=== PATIENT | female | born 1980 | race African-American/Black ===

== ENCOUNTER 2018-11-06 14:55 | Emergency (ER) | payer OTHER ==
[2018-11-06 15:22] VITALS: TEMP 98.5; BMI 43.5
[2018-11-06 15:58] LABS: BASO % 0.7 % (0-2.0); HEMATOCRIT 39.4 % (32.4-45.2); LYMPH % 42.5 % (8-40); MCH 29.5 pg (25.7-33.7); MCHC 32.9 g/dl (32.0-36.0); MEAN CELL VOLUME 89.5 fl (80-96); MEAN PLT VOLUME 7.7 fl (7.5-11.1); MONO % 8.2 % (3.8-10.2); NEUT % 45.6 % (42.8-82.8); PLATELET COUNT 304 K/MM3 (134-434); RDW 14.9 % (11.6-15.6); WHITE BLOOD COUNT 8.5 K/mm3 (4.0-10.0)
--- NOTE | 2018-11-06 16:02 | PDOC ---
History of Present Illness - General Chief Complaint: Shortness of Breath Stated Complaint: SENT BY PCP Time Seen by Provider: 11/06/18 15:27 History Source: Patient Exam Limitations: No Limitations - History of Present Illness Initial Comments: 11/06/18 15:55 Pt is a 38yo F with no significant PMH presenting to ED with complaints of back pain with inspiration that started last night. Pt states she was sitting on the couch and when she had sudden onset of pain in the upper back with inspiration and feelings of GERD. She took Zantac and the heart burn went away but the back pain persisted. Pt states she has not been able to take full breaths due to the pain. She went to urgent care and was told her d-dimer was "abnormal". She denies chest pain, cough, hemoptysis, palpitations, abdominal pain, n/v/d, trauma, recent travel, recent surgery, leg swelling, calf pain, syncope, lightheadedness, fevers, chills. Denies use of OCPs, smoking. PMD: [place] PMH: none PSH: none Allergies: nkda Social: denies 11/06/18 16:03 Past History - Past Medical History Allergies/Adverse Reactions: Allergies Allergy/AdvReac Type Severity Reaction Status Date / Time No Known Drug Allergies Allergy Verified 10/30/15 20:09 Home Medications: Ambulatory Orders Sumatriptan Succinate [Imitrex] 25 mg PO DAILY 11/06/18 Asthma: No Cancer: No Cardiac Disorders: No Diabetes: No HTN: No Seizures: No Thyroid Disease: No - Reproductive History (#): 8 Para: 7 Cervical CA: No Dysfunctional Uterine Bleeding: No Ectopic : No Endometrial CA: No Polycystic Ovaries: No Therapeutic (s) & number: No Tubal Ligation: No Spontaneous : 0 - Immunization History Immunization Up to Date: Yes - Suicide/Smoking/Psychosocial Hx Smoking History: Current every day smoker Have you smoked in the past 12 months: No Number of Cigarettes Smoked Daily: 12 If you are a former smoker, when did you quit?: 03/29/14 Information on smoking cessation initiated: No 'Breaking Loose' booklet given: 10/28/15 Hx Alcohol Use: No Drug/Substance Use Hx: No Substance Use Type: None Hx Substance Use Treatment: No Review of Systems - Review of Systems Constitutional: No: Symptoms Reported HEENTM: No: Symptoms Reported Respiratory: Yes: See HPI, Other (pleuritic back pain) Cardiac (ROS): No: Symptoms Reported ABD/GI: No: Symptoms Reported : No: Symptoms Reported Musculoskeletal: Yes: See HPI, Back Pain Integumentary: No: Symptoms Reported Neurological: No: Symptoms reported *Physical Exam - Vital Signs Last Vital Signs Temp Pulse Resp BP Pulse Ox 98.5 F 81 20 123/79 100 11/06/18 15:18 11/06/18 15:18 11/06/18 15:18 11/06/18 15:18 11/06/18 15:18 - Physical Exam General Appearance: Yes: Appropriately Dressed, Obese. No: Apparent Distress HEENT: positive: EOMI, BRITTANY, Normal ENT Inspection Neck: positive: Trachea midline, Supple. negative: Lymphadenopathy (R), Lymphadenopathy (L) Respiratory/Chest: positive: Lungs Clear, Normal Breath Sounds. negative: Crackles, Wheezing Cardiovascular: positive: Regular Rhythm, Regular Rate, S1, S2. negative: Edema , JVD, Murmur Vascular Pulses: Carotid (R): 2+, Carotid (L): 2+, Dorsalis-Pedis (R): 2+, Doralis-Pedis (L): 2+ Gastrointestinal/Abdominal: positive: Normal Bowel Sounds, Soft. negative: Tender Musculoskeletal: negative: CVA Tenderness Extremity: positive: Normal Capillary Refill. negative: Swelling, Calf Tenderness Integumentary: positive: Normal Color, Dry, Warm Neurologic: positive: inclusion manager II-XII NML intact, Fully Oriented, Alert, Normal Mood/ Affect, Normal Response, Motor Strength 11/21 ED Treatment Course - LABORATORY CBC & Chemistry Diagram: 11/06/18 15:50 11/06/18 15:50 Medical Decision Making - Medical Decision Making 11/06/18 16:00 Pt is a 38yo F with no significant PMH presenting to ED with complaints of back pain with inspiration that started last night. Pt states she was sitting on the couch and when she had sudden onset of pain in the upper back with inspiration and feelings of GERD. She took Zantac and the heart burn went away but the back pain persisted. Pt states she has not been able to take full breaths due to the pain. She went to urgent care and was told her d-dimer was elevated. She denies chest pain, cough, hemoptysis, palpitations, abdominal pain, n/v/d, trauma, recent travel, recent surgery, leg swelling, calf pain, syncope, lightheadedness , fevers, chills. Denies use of OCPs, smoking. vitals: PE: Ddx includes but not limited to msk, pe, dissection, acs, costrochondritis -labs, d-dimer -if not , will get imaging. labs significant for elevated D-dimer. all other labs wnl. will order CTA 11/06/18 18:48 CTA- no PE, unremarkable CT of thorax. ekg- nsr, low voltages. TWI in III. Flat in V3, V4-6. Pt does not have acute process, is hemodynamically stable, has pmd f/u. will dc home. given referral to cardiology per ekg findings. pt agrees to plan. understands return precautions. 11/06/18 19:29 *DC/Admit/Observation/Transfer Diagnosis at time of Disposition: Back pain Qualifiers: Back pain location: thoracic back pain Chronicity: acute Back pain laterality: left Qualified Code(s): M54.6 - Pain in thoracic spine - Discharge Dispostion Disposition: HOME Condition at time of disposition: Good Decision to Admit order: No - Referrals Referrals: Angie South MD [Primary Care Provider] - Isidro Olea MD [Staff Physician] - - Patient Instructions Printed Discharge Instructions: DI for Thoracic Back Pain Additional Instructions: You were seen in the emergency room today for back pain with inspiration. You do not have a PE (clot) and your lungs appear normal. I do not know the exact cause of your pain, but it could be due to the muscles. I recommend making an appointment with your primary care doctor as well as a bb shot packer. The information is provided below. You can continue to take Tylenol or ibuprofen for the pain as needed. Come back to the emergency room if pain gets worse, you have difficulty breathing, you pass out or if any new concerning symptom develops. Thank you - Post Discharge Activity
[2018-11-06 16:30] LABS: ALBUMIN 3.2 g/dl (3.4-5.0); ALK PHOS 56 U/L (45-117); ANION GAP 2 MMOL/L (8-16); BILIRUBIN,TOTAL 0.2 mg/dL (0.2-1); BLOOD UREA NITROGEN 16 mg/dL (7-18); CHLORIDE 106 mmol/L (98-107); CO2 30 mmol/L (21-32); CREATININE 0.8 mg/dL (0.55-1.3); GLUCOSE,RANDOM 83 mg/dL (74-106); MAGNESIUM 2.2 mg/dL (1.8-2.4); SGOT/AST 22 U/L (15-37); SGPT/ALT 21 U/L (13-61); SODIUM 139 mmol/L (136-145); TOT PROT 7.2 g/dl (6.4-8.2)
--- NOTE | 2018-11-06 16:35 | PDOC ---
Documentation entered by Pete Garcia SCRIBE, acting as scribe for Modesto Yao MD. Modesto Yao MD: This documentation has been prepared by the Jose valdez Nirvannie, SCRIBE, under my direction and personally reviewed by me in its entirety. I confirm that the documentation accurately reflects all work, treatment, procedures, and medical decision making performed by me. Attending Attestation - Resident Resident Name: RosmeryDeborah - ED Attending Attestation I have performed the following: I have examined & evaluated the patient, The case was reviewed & discussed with the resident, I agree w/resident's findings & plan - HPI HPI: 11/06/18 16:43 The patient is a 38 year old female, with no significant past medical history, who presents to the emergency department with, 2 days pleuritic back pain with associated GERD-like symptoms. As per patient, her symptoms onset last night while watching a movie she took her Zantac and the GERD resolved, however, the pain persisted. She endorses going to urgent care today at which time she had an elevated d-dimer, prompting her arrival to the ER for further evaluation. She denies recent fevers, chills, headache or dizziness. She denies recent nausea, vomit, diarrhea or constipation. She denies recent dysuria, frequency, urgency or hematuria. Allergies: NKDA Social history: Smoker ppd. Primary Care Physician: Dr. South - Physicial Exam PE: 11/06/18 16:43 GENERAL: Awake, alert, and fully oriented, in no acute distress HEAD: No signs of trauma EYES: PERRLA, EOMI, sclera anicteric, conjunctiva clear ENT: Auricles normal inspection, hearing grossly normal, nares patent, oropharynx clear without exudates. Moist mucosa NECK: Normal ROM, supple, no lymphadenopathy, JVD, or masses LUNGS: Breath sounds equal, clear to auscultation bilaterally. No wheezes, and no crackles HEART: Regular rate and rhythm, normal S1 and S2, no murmurs, rubs or gallops ABDOMEN: Soft, nontender, normoactive bowel sounds. No guarding, no rebound. No masses EXTREMITIES: Normal range of motion, no edema. No clubbing or cyanosis. No cords, erythema, or tenderness NEUROLOGICAL: Cranial nerves II through XII grossly intact. Normal speech, normal gait SKIN: Warm, Dry, normal turgor, no rashes or lesions noted. - Medical Decision Making 11/06/18 16:36 A portion of this note was written by my scribe, under my supervision. Vital Signs Temp Pulse Resp BP Pulse Ox 98.5 F 81 20 123/79 100 11/06/18 15:18 11/06/18 15:18 11/06/18 15:18 11/06/18 15:18 11/06/18 15:18 38 year old female c/ no pmh p/w pleuritic back pain since yesterday. Pt reports that she was watching a movie when the patient came on suddenly. The patient stated that the pain was sharp and persistent. No associated SOB. No dyspnea on exertion. Does smoke half pack of cigarettes daily, but does not take control pills. No prior cardiac history. Denies nausea, vomiting, abdominal pain. The patient went to urgent care and noted an elevated d-dimer so pt to ER. Will need to rule out PE. ACS less likely. ECG with nonspecific findings. No ECG findings of pericarditis. CTA of chest. Troponin. Reassess. 11/06/18 18:49 CBC, BMP 11/06/18 15:50 11/06/18 15:50 CMP Sodium 139 mmol/L (136-145) 11/06/18 15:50 Potassium 5.0 mmol/L (3.5-5.1) 11/06/18 15:50 Chloride 106 mmol/L (98-107) 11/06/18 15:50 Carbon Dioxide 30 mmol/L (21-32) 11/06/18 15:50 Anion Gap 2 MMOL/L (8-16) L 11/06/18 15:50 BUN 16 mg/dL (7-18) 11/06/18 15:50 Creatinine 0.8 mg/dL (0.55-1.3) 11/06/18 15:50 Creat Clearance w eGFR 80.27 (>60) 11/06/18 15:50 Random Glucose 83 mg/dL (74-106) 11/06/18 15:50 Calcium 9.0 mg/dL (8.5-10.1) 11/06/18 15:50 Magnesium 2.2 mg/dL (1.8-2.4) 11/06/18 15:50 Total Bilirubin 0.2 mg/dL (0.2-1) 11/06/18 15:50 AST 22 U/L (15-37) 11/06/18 15:50 ALT 21 U/L (13-61) 11/06/18 15:50 Alkaline Phosphatase 56 U/L (45-117) 11/06/18 15:50 Troponin I < 0.02 ng/ml (0.00-0.05) 11/06/18 15:50 Total Protein 7.2 g/dl (6.4-8.2) 11/06/18 15:50 Albumin 3.2 g/dl (3.4-5.0) L 11/06/18 15:50 Serum , Qual Negative 11/06/18 15:50 CT scan of the chest shows no acute findings. No PE. Negative troponin. Given these findings, I feel comfortable discharging the patient home. The patient does have nonspecific ECG findings, which we will refer the patient to cardiology for outpatient management. Diagnosis: upper back pain. Supportive care and follow up with PMD Heart Score/ECG Review #1 ECG reviewed & interpreted by me at: 15:50 11/06/18 16:36 NSR 72, no std/kendall, low voltage QRS, TWI III, T wave flat V3, QTC 416 msec
[2018-11-06 17:31] VITALS: BP 116/74; PULSE 89
--- NOTE | 2018-11-07 12:59 | EKG ---
Test Reason : Blood Pressure : / mmHG Vent. Rate : 072 BPM Atrial Rate : 072 BPM P-R Int : 166 ms QRS Dur : 070 ms QT Int : 380 ms P-R-T Axes : 056 020 008 degrees QTc Int : 416 ms NORMAL SINUS RHYTHM LOW VOLTAGE QRS NONSPECIFIC T WAVE ABNORMALITY ABNORMAL ECG Confirmed by MD ROSELYN, AMALIA ([id number]) on 11/07/2018 12:59:26 PM Referred By: Confirmed By:AMALIA DEMPSEY MD
== END 2018-11-06 19:02 | disposition home or self-care (01) ==
LOC: JER 14:55
DX: M54.6 Pain in thoracic spine (principal); D68.69 Other thrombophilia
CPT/HCPCS: 36415; 71275-TC; 80053; 83735; 84484; 84703; 85025; 85379; 93005; 93010; 99284-25

== ENCOUNTER 2021-03-09 11:46 | Emergency (ER) | payer OTHER ==
[2021-03-09 11:57] VITALS: BP 141/92; PULSE 78; TEMP 98.7; BMI 45.0
[2021-03-09] MEDS ORDERED: ACETAMINOPHEN 325 MG TABLET (FP) PO ONE (13:00)
[2021-03-09] MEDS ORDERED: ACETAMINOPHEN 325 MG TABLET (FP) ONE (13:06)
[2021-03-09 13:50] LABS: BASO % 0.9 % (0-2.0); EOS % 1.5 % (0-4.5); HEMATOCRIT 39.7 % (32.4-45.2); HEMOGLOBIN 13.4 GM/dL (10.7-15.3); MCH 29.5 pg (25.7-33.7); MCHC 33.9 g/dl (32.0-36.0); MEAN CELL VOLUME 87.2 fl (80-96); MONO % 5.5 % (3.8-10.2); NEUT % 60.1 % (42.8-82.8); PLATELET COUNT 299 10^3/uL (134-434); RBC 4.55 M/mm3 (3.60-5.2); RDW 14.8 % (11.6-15.6); WHITE BLOOD COUNT 9.2 K/mm3 (4.0-10.0)
[2021-03-09 13:59] LABS: EPI CELLS >36 /uL (0-25.1); HYALINE CASTS 1 /uL (0-3.1); URINE APPEARANCE CLOUDY; URINE BACTERIA 2197 /uL (0-1359); URINE BILIRUBIN NEGATIVE (NEGATIVE); URINE COLOR YELLOW; URINE GLUCOSE (UA) NEGATIVE (NEGATIVE); URINE KETONE NEGATIVE (NEGATIVE); URINE LEUK ESTERASE TRACE (NEGATIVE); URINE NITRITE NEGATIVE (NEGATIVE); URINE PROTEIN NEGATIVE (NEGATIVE); URINE WBC 30 /uL (0-25.8)
[2021-03-09 14:00] LABS: URINE RBC 65.4 /uL (0-23.9)
[2021-03-09 14:01] LABS: INR 1.13 (0.83-1.09); PROTHROMBIN TIME (PATIENT) 13.9 SEC (9.7-13.0)
[2021-03-09 14:13] LABS: CHLORIDE 108 mmol/L (98-107); SODIUM 139 mmol/L (136-145)
[2021-03-09 14:15] LABS: CALCIUM 8.7 mg/dL (8.5-10.1)
[2021-03-09 14:16] LABS: ALBUMIN 3.6 g/dl (3.4-5.0); ANION GAP 7 MMOL/L (8-16); BLOOD UREA NITROGEN 9.9 mg/dL (7-18); CO2 25 mmol/L (21-32); GLUCOSE,RANDOM 89 mg/dL (74-106)
[2021-03-09 14:19] LABS: CREATININE 0.8 mg/dL (0.55-1.3); SGOT/AST 17 U/L (15-37)
[2021-03-09 14:20] LABS: TOT PROT 7.8 g/dl (6.4-8.2)
[2021-03-09 14:22] LABS: ALK PHOS 61 U/L (45-117)
[2021-03-09 14:55] LABS: BILIRUBIN,TOTAL 0.3 mg/dL (0.2-1); SGPT/ALT 19 U/L (13-61)
== END 2021-03-09 17:10 | disposition home or self-care (01) ==
LOC: JER 11:46
DX: R07.9 Chest pain, unspecified (principal); M25.461 Effusion, right knee
CPT/HCPCS: 36415; 71275-TC; 80053; 81003; 82550; 82553; 84484; 84703; 85025; 85379; 85610; 87086; 93005; 93010; 99285-25; Q9967

== ENCOUNTER 2022-04-29 12:43 | Emergency (ER) | payer OTHER ==
[2022-04-29 12:47] VITALS: BP 127/78; PULSE 59; RESP 20; TEMP 98.7; BMI 38.4
[2022-04-29 14:12] LABS: BASO % 0.7 % (0-2.0); EOS % 1.1 % (0-4.5); HEMATOCRIT 40.2 % (32.4-45.2); HEMOGLOBIN 12.8 GM/dL (10.7-15.3); LYMPH % 45.1 % (8-40); MCH 28.7 pg (25.7-33.7); MCHC 31.9 g/dl (32.0-36.0); MEAN CELL VOLUME 89.7 fl (80-96); MEAN PLT VOLUME 8.4 fl (7.5-11.1); MONO % 6.8 % (3.8-10.2); NEUT % 46.3 % (42.8-82.8); PLATELET COUNT 308 10^3/uL (134-434); RBC 4.48 M/mm3 (3.60-5.2); RDW 14.2 % (11.6-15.6); WHITE BLOOD COUNT 7.5 K/mm3 (4.0-10.0)
[2022-04-29 14:32] LABS: ALBUMIN 3.5 g/dl (3.4-5.0); CALCIUM 8.8 mg/dL (8.5-10.1)
[2022-04-29 14:35] LABS: CREATININE 0.9 mg/dL (0.55-1.3)
[2022-04-29 14:36] LABS: BILIRUBIN,TOTAL 0.4 mg/dL (0.2-1); TOT PROT 7.8 g/dl (6.4-8.2)
[2022-04-29 14:48] LABS: EPI CELLS 12 /uL (0-25.1); HYALINE CASTS 0 /uL (0-3.1); URINE APPEARANCE CLEAR; URINE BACTERIA 8592 /uL (0-1359); URINE BILIRUBIN NEGATIVE (NEGATIVE); URINE COLOR YELLOW; URINE GLUCOSE (UA) NEGATIVE (NEGATIVE); URINE KETONE NEGATIVE (NEGATIVE); URINE LEUK ESTERASE TRACE (NEGATIVE); URINE NITRITE POSITIVE (NEGATIVE); URINE PROTEIN NEGATIVE (NEGATIVE); URINE RBC 41 /uL (0-23.9); URINE WBC 24 /uL (0-25.8)
== END 2022-04-29 17:43 | disposition home or self-care (01) ==
LOC: JER 12:43
DX: O20.9 Hemorrhage in early pregnancy, unspecified (principal); Z3A.01 Less than 8 weeks gestation of pregnancy
CPT/HCPCS: 36415; 76817-TC; 80053; 81003; 84702; 84703; 85025; 87086; 99284-25